=== PATIENT | female | born 1945 | race Caucasian/White ===

== ENCOUNTER 2023-06-18 21:39 | Inpatient (IN) | payer MEDICARE, MEDICAID ==
[2023-06-18] MEDS ORDERED: Piperacillin/Tazobactam 4.5 GM VIAL ONE (22:11)
[2023-06-18 22:22] LABS: Hematocrit 33.7 % (34.9-44.5); Hemoglobin 10.5 g/dL (12.0-15.5); MDiff Complete? YES; Mean Corpuscular HGB CONC 31.2 g/dL (32.0-36.0); Mean Corpuscular Volume 93.1 fl (81.6-98.3); Platelet Count 240 10x3/uL (150-450); RBC Distribution Width 14.5 % (11.5-14.5); Red Blood Cell (RBC) Count 3.62 10x6/uL (3.90-5.03); White Blood Cell (WBC) Count 26.3 10x3/uL (3.5-10.5)
[2023-06-18] MEDS ORDERED: Ketorolac Tromethamine 30 MG/ML VIAL ONE (22:25)
[2023-06-18 22:35] LABS: Bilirubin Neg (Negative); Blood, Urine 10 (Negative); Clarity Slightly Cloudy (Clear); Glucose, Urine (Dipstick) Normal (Negative); Ketone, Urine Negative (Negative); Leukocyte 500 (Negative); Nitrite Negative (Negative); Protein, Urine (Dipstick) 15 mg/dl (Neg-Trace); Urobilinogen Normal mg/dL (Less than 2)
[2023-06-18 22:36] LABS: ALT (SGPT) 7 U/L (8-55); AST (SGOT) 14 U/L (5-34); Albumin 3.2 g/dL (3.4-4.8); Alkaline Phosphatase 34 U/L (40-110); Anion Gap 15 mmol/L (10-20); BUN (Urea Nitrogen) 27 mg/dL (9.8-20.1); Bilirubin, Total 0.5 mg/dL (0.2-1.2); Calc. Creatinine Clearance 0 mL/min (70-130); Calcium 8.3 mg/dL (7.8-10.44); Carbon Dioxide 26 mmol/L (23-31); Chloride 102 mmol/L (98-107); Estimated GFR 30; Globulin 2.9 g/dL (2.4-3.5); Glucose 97 mg/dL (83-110); Protein, Total 6.1 g/dL (5.8-8.1); Sodium 139 mmol/L (136-145)
[2023-06-18 22:48] LABS: SARS-CoV-2 NAA Rapid Test Not Detected (NotDetected)
[2023-06-18 22:53] LABS: CAUTI Indications for Culture Fever or rigors; RBC/HPF 0-3 HPF (0-3)
[2023-06-18 22:54] LABS: Squamous Epithelial 0-3 HPF (0-3)
[2023-06-18 22:56] LABS: Renal Epithelial 0-3 HPF (None Seen)
[2023-06-18 22:57] LABS: Band 9 % (5-11); Eosinophils 1 % (0-10); Lymphocytes 13 % (21-51); Monocytes 1 % (0-10); Neutrophil 76 % (42-75)
[2023-06-18 22:58] LABS: Bacteria/HPF None Seen HPF (None Seen); Urine Culture Reflex No No
[2023-06-18] MEDS ORDERED: Vancomycin 1 GM VIAL ONE (22:59)
[2023-06-18 23:02] LABS: Hypochromia SLIGHT = 6-15 cells (100X) (0-5/hpf); Microcytosis SLIGHT = 6-15 cells (100X) (0-5/hpf); Platelet Adequacy Comment Appears Adequate; Platelet Clumps SLIGHT
[2023-06-19 01:13] VITALS: BMI 36.0
[2023-06-19] MEDS ORDERED: Communication Order-Pharmacy FS ONE (02:06)
[2023-06-19] MEDS ORDERED: Lactated Ringer's 1,000 ML IV SCH (02:15)
[2023-06-19] MEDS ORDERED: Vancomycin 1 GM in Sodium Chloride 0.9% 500 ML IVPB SCH (02:15)
[2023-06-19] MEDS ORDERED: Vancomycin 1 GM in Sodium Chloride 0.9% 250 ML 250 ML IVPB SCH (02:30)
[2023-06-19] MEDS: Acetaminophen 325 MG TAB PO PRN ×4 (02:50→20:43)
[2023-06-19] MEDS ORDERED: Sodium Chloride 0.65% Nasal 44 ML BOT EA NARE PRN (02:53)
[2023-06-19] MEDS ORDERED: Simethicone Chewable 80 MG TAB PO PRN (02:53)
[2023-06-19] MEDS ORDERED: Calcium Carbonate 500 MG ChewTAB PO PRN (02:53)
[2023-06-19] MEDS ORDERED: Polyethylene Glycol 3350 17 GM Packet PO PRN (02:53)
[2023-06-19] MEDS ORDERED: Fluticasone Propionate Nasal Spray 16 gm Bottle NASAL PRN (02:53)
[2023-06-19] MEDS ORDERED: guaiFENesin ER 600 MG TAB PO PRN (02:53)
[2023-06-19] MEDS ORDERED: Guaifenesin DM 100-10/5 ML UDCUP PO PRN (02:53)
[2023-06-19] MEDS ORDERED: Benzonatate 100 MG CAP PO PRN (02:53)
[2023-06-19] MEDS ORDERED: Docusate 100 MG CAP PO PRN (02:53)
[2023-06-19] MEDS: Sodium Chloride 0.9% 1,000 ML IV SCH ×2 (03:05→15:05)
[2023-06-19] MEDS: Cefepime 2 GM in Sodium Chloride 0.9% 100 ML IVPB SCH ×2 (03:20→14:41)
[2023-06-19] MEDS: Ipratropium/Albuterol 3 ML NEB NEB SCH ×5 (04:40→18:23)
[2023-06-19 04:57] LABS: #Basophils 0.1 10x3/uL (0.0-0.2); #Eosinphils 0.1 10x3/uL (0.0-0.5); #Monocytes 0.8 10x3/uL (0.0-1.1); #Neutrophils 17.4 10x3/uL (1.5-8.4); %Basophils 0.2 % (0.0-2.0); %Eosinophils 0.4 % (0.0-6.0); %Lymphocytes 11.5 % (18.0-47.0); %Monocytes 3.8 % (0.0-10.0); %Neutrophils 83.5 % (40.0-75.0); Hematocrit 31.4 % (34.9-44.5); Hemoglobin 9.8 g/dL (12.0-15.5); Mean Corpuscular HGB CONC 31.2 g/dL (32.0-36.0); Mean Corpuscular Hemoglobin 29.4 pg (27.0-33.0); Mean Corpuscular Volume 94.3 fl (81.6-98.3); Mean Platelet Volume 8.9 fl (7.4-10.4); Platelet Count 206 10x3/uL (150-450); RBC Distribution Width 14.6 % (11.5-14.5); Red Blood Cell (RBC) Count 3.33 10x6/uL (3.90-5.03); White Blood Cell (WBC) Count 20.9 10x3/uL (3.5-10.5)
[2023-06-19 05:09] LABS: Anion Gap 11 mmol/L (10-20); BUN (Urea Nitrogen) 25 mg/dL (9.8-20.1); Calc. Creatinine Clearance 48 mL/min (70-130); Carbon Dioxide 26 mmol/L (23-31); Chloride 105 mmol/L (98-107); Estimated GFR 37; Glucose 98 mg/dL (83-110); Magnesium 1.9 mg/dL (1.6-2.6); Potassium 3.9 mmol/L (3.5-5.1); Sodium 138 mmol/L (136-145)
[2023-06-19] MEDS: LevoFLOXacin 750 mg/D5W 750 MG in Premix 1 BAG IVPB SCH (05:40)
[2023-06-19] MEDS: Budesonide 0.5 MG/2 ML NEB INH SCH ×2 (07:35→18:24)
[2023-06-19] MEDS: hydrOXYzine 25 MG TAB PO SCH ×3 (08:28→20:42)
[2023-06-19] MEDS: Saccharomyces boulardii 250 MG CAP PO SCH ×2 (08:28→20:42)
[2023-06-19] MEDS: clonazePAM 0.5 MG TAB PO SCH ×2 (08:29→20:42)
[2023-06-19] MEDS: Sertraline 25 MG TAB PO SCH (08:29)
[2023-06-19] MEDS ORDERED: Iopamidol 370 76% 100 ML VIAL ONE (10:19)
[2023-06-19] MEDS: Betamethasone 0.1% Cream 15 GM TUBE TOP SCH ×4 (11:30→20:44)
[2023-06-19] MEDS: Artificial Tear Sol 15 ML BOT EA EYE SCH ×3 (11:31→20:44)
[2023-06-19] MEDS: Topiramate 25 MG TAB PO SCH ×2 (11:31→20:43)
[2023-06-19] MEDS ORDERED: Sodium Chloride 0.9% 1,000 ML IV SCH (14:32)
[2023-06-19] MEDS: Gabapentin 300 MG CAP PO SCH ×2 (14:40→20:41)
[2023-06-19] MEDS: rOPINIRole HCl 1 MG TAB PO SCH (20:41)
[2023-06-19] MEDS: Loratadine 10 MG TAB PO SCH (20:42)
[2023-06-19] MEDS: Mirtazapine 15 MG TAB PO SCH (20:42)
[2023-06-19] MEDS: Methocarbamol 500 MG TAB PO SCH (20:43)
[2023-06-19] MEDS: Vancomycin 1 GM in Sodium Chloride 0.9% 250 ML 250 ML IVPB SCH (23:39)
[2023-06-20 03:58] LABS: #Basophils 0.1 10x3/uL (0.0-0.2); #Eosinphils 0.2 10x3/uL (0.0-0.5); #Neutrophils 13.4 10x3/uL (1.5-8.4); %Basophils 0.3 % (0.0-2.0); %Eosinophils 1.1 % (0.0-6.0); %Lymphocytes 8.4 % (18.0-47.0); %Neutrophils 83.6 % (40.0-75.0); Hematocrit 32.1 % (34.9-44.5); Hemoglobin 9.7 g/dL (12.0-15.5); Mean Corpuscular HGB CONC 30.2 g/dL (32.0-36.0); Mean Corpuscular Hemoglobin 28.4 pg (27.0-33.0); Mean Corpuscular Volume 94.1 fl (81.6-98.3); Mean Platelet Volume 8.8 fl (7.4-10.4); Platelet Count 232 10x3/uL (150-450); RBC Distribution Width 14.6 % (11.5-14.5); Red Blood Cell (RBC) Count 3.41 10x6/uL (3.90-5.03)
[2023-06-20] MEDS: Cefepime 2 GM in Sodium Chloride 0.9% 100 ML IVPB SCH ×2 (03:58→14:08)
[2023-06-20 04:15] LABS: ALT (SGPT) Less than 7 U/L (8-55); AST (SGOT) 12 U/L (5-34); Albumin 2.7 g/dL (3.4-4.8); Alkaline Phosphatase 31 U/L (40-110); Anion Gap 9 mmol/L (10-20); BUN (Urea Nitrogen) 19 mg/dL (9.8-20.1); Bilirubin, Total 0.5 mg/dL (0.2-1.2); Calc. Creatinine Clearance 51 mL/min (70-130); Calcium 8.3 mg/dL (7.8-10.44); Carbon Dioxide 23 mmol/L (23-31); Chloride 109 mmol/L (98-107); Estimated GFR 41; Glucose 87 mg/dL (83-110); Potassium 4.4 mmol/L (3.5-5.1); Protein, Total 5.7 g/dL (5.8-8.1); Sodium 137 mmol/L (136-145)
[2023-06-20] MEDS: Ipratropium/Albuterol 3 ML NEB NEB SCH ×4 (07:40→20:10)
[2023-06-20] MEDS: Budesonide 0.5 MG/2 ML NEB INH SCH ×2 (07:40→20:10)
[2023-06-20] MEDS: Gabapentin 300 MG CAP PO SCH ×3 (08:13→21:20)
[2023-06-20] MEDS: Artificial Tear Sol 15 ML BOT EA EYE SCH ×3 (08:13→21:27)
[2023-06-20] MEDS: Betamethasone 0.1% Cream 15 GM TUBE TOP SCH ×4 (08:13→21:28)
[2023-06-20] MEDS: clonazePAM 0.5 MG TAB PO SCH ×2 (08:14→21:22)
[2023-06-20] MEDS: Sertraline 25 MG TAB PO SCH (08:14)
[2023-06-20] MEDS: hydrOXYzine 25 MG TAB PO SCH ×3 (08:14→21:23)
[2023-06-20] MEDS: Ondansetron PF 4 MG/2 ML Vial IVP PRN (08:14)
[2023-06-20] MEDS: Topiramate 25 MG TAB PO SCH ×2 (08:15→22:06)
[2023-06-20] MEDS: Saccharomyces boulardii 250 MG CAP PO SCH ×2 (08:15→21:29)
[2023-06-20] MEDS: Loratadine 10 MG TAB PO SCH (21:20)
[2023-06-20] MEDS: Mirtazapine 15 MG TAB PO SCH (21:22)
[2023-06-20] MEDS: Acetaminophen 325 MG TAB PO PRN (21:24)
[2023-06-20] MEDS: rOPINIRole HCl 1 MG TAB PO SCH (21:24)
[2023-06-20] MEDS: Methocarbamol 500 MG TAB PO SCH (22:07)
[2023-06-20 22:21] LABS: Vancomycin, Trough 16.6 ug/mL
[2023-06-20] MEDS: Vancomycin 1 GM in Sodium Chloride 0.9% 250 ML 250 ML IVPB SCH (23:35)
[2023-06-21] MEDS ORDERED: Vancomycin 1.5 GM in Sodium Chloride 0.9% 250 ML 300 ML IVPB SCH (02:15)
[2023-06-21] MEDS: Cefepime 2 GM in Sodium Chloride 0.9% 100 ML IVPB SCH ×2 (02:33→14:40)
[2023-06-21] MEDS: LevoFLOXacin 750 mg/D5W 750 MG in Premix 1 BAG IVPB SCH (04:38)
[2023-06-21] MEDS: Acetaminophen 325 MG TAB PO PRN ×3 (04:55→21:02)
[2023-06-21] MEDS ORDERED: dilTIAZem 25 MG/5 ML VIAL SLOW IVP SCH ×2 (05:30→06:15)
[2023-06-21] MEDS ORDERED: dilTIAZem 125 MG in Sodium Chloride 0.9% 100 ML IVPB SCH ×2 (06:15→08:30)
[2023-06-21] MEDS: Ondansetron PF 4 MG/2 ML Vial IVP PRN (06:33)
[2023-06-21 06:35] LABS: PTT 32.3 sec (22.0-33.0); Prothrombin Time 10.6 sec (9.5-12.1)
[2023-06-21] MEDS: Ipratropium/Albuterol 3 ML NEB NEB SCH ×4 (07:00→19:33)
[2023-06-21] MEDS: Budesonide 0.5 MG/2 ML NEB INH SCH ×2 (07:00→19:32)
[2023-06-21] MEDS ORDERED: Sodium Chloride 0.9% 500 ML IV SCH (07:00)
[2023-06-21 07:15] LABS: Troponin I 0.032 ng/mL (< 0.028)
[2023-06-21] MEDS: Metoprolol Tartrate 25 MG TAB PO SCH ×3 (08:48→21:02)
[2023-06-21 08:52] LABS: #Eosinphils 0.3 10x3/uL (0.0-0.5); #Monocytes 0.8 10x3/uL (0.0-1.1); #Neutrophils 9.4 10x3/uL (1.5-8.4); %Basophils 0.3 % (0.0-2.0); %Eosinophils 2.7 % (0.0-6.0); %Lymphocytes 10.8 % (18.0-47.0); %Monocytes 6.9 % (0.0-10.0); %Neutrophils 78.8 % (40.0-75.0); Hematocrit 34.4 % (34.9-44.5); Hemoglobin 10.3 g/dL (12.0-15.5); Mean Corpuscular HGB CONC 29.9 g/dL (32.0-36.0); Mean Corpuscular Hemoglobin 28.5 pg (27.0-33.0); Mean Platelet Volume 8.7 fl (7.4-10.4); Platelet Count 264 10x3/uL (150-450); RBC Distribution Width 14.5 % (11.5-14.5); Red Blood Cell (RBC) Count 3.62 10x6/uL (3.90-5.03); White Blood Cell (WBC) Count 11.9 10x3/uL (3.5-10.5)
[2023-06-21 08:54] LABS: ALT (SGPT) Less than 7 U/L (8-55); AST (SGOT) 12 U/L (5-34); Albumin 2.6 g/dL (3.4-4.8); Alkaline Phosphatase 31 U/L (40-110); Anion Gap 13 mmol/L (10-20); BUN (Urea Nitrogen) 15 mg/dL (9.8-20.1); Bilirubin, Total 0.5 mg/dL (0.2-1.2); Calc. Creatinine Clearance 58 mL/min (70-130); Calcium 8.1 mg/dL (7.8-10.44); Carbon Dioxide 22 mmol/L (23-31); Chloride 109 mmol/L (98-107); Estimated GFR 48; Globulin 2.7 g/dL (2.4-3.5); Glucose 82 mg/dL (83-110); Potassium 4.7 mmol/L (3.5-5.1); Protein, Total 5.3 g/dL (5.8-8.1); Sodium 139 mmol/L (136-145)
[2023-06-21 08:58] LABS: Troponin I 0.013 ng/mL (< 0.028)
[2023-06-21] MEDS ORDERED: Digoxin 0.5 MG/2 ML AMP SLOW IVP SCH (09:00)
[2023-06-21] MEDS: Gabapentin 300 MG CAP PO SCH ×3 (09:06→21:01)
[2023-06-21] MEDS: Saccharomyces boulardii 250 MG CAP PO SCH ×2 (09:06→21:01)
[2023-06-21] MEDS: Sertraline 25 MG TAB PO SCH (09:06)
[2023-06-21] MEDS: hydrOXYzine 25 MG TAB PO SCH ×3 (09:07→21:01)
[2023-06-21] MEDS: clonazePAM 0.5 MG TAB PO SCH ×2 (09:07→21:02)
[2023-06-21] MEDS: Artificial Tear Sol 15 ML BOT EA EYE SCH ×3 (09:12→21:04)
[2023-06-21] MEDS: Betamethasone 0.1% Cream 15 GM TUBE TOP SCH ×4 (09:13→21:04)
[2023-06-21] MEDS: Topiramate 25 MG TAB PO SCH ×2 (10:07→21:03)
[2023-06-21 12:07] LABS: Troponin I 0.013 ng/mL (< 0.028)
[2023-06-21] MEDS: Loratadine 10 MG TAB PO SCH (21:01)
[2023-06-21] MEDS: rOPINIRole HCl 1 MG TAB PO SCH (21:03)
[2023-06-21] MEDS: Methocarbamol 500 MG TAB PO SCH (21:03)
[2023-06-21] MEDS: Mirtazapine 15 MG TAB PO SCH (21:03)
[2023-06-21] MEDS: Vancomycin 1 GM in Sodium Chloride 0.9% 250 ML 250 ML IVPB SCH (23:48)
[2023-06-22] MEDS ORDERED: diphenhydrAMINE 25 MG CAP PO SCH (00:15)
[2023-06-22 03:30] LABS: #Basophils 0.1 10x3/uL (0.0-0.2); #Eosinphils 0.5 10x3/uL (0.0-0.5); #Monocytes 0.9 10x3/uL (0.0-1.1); #Neutrophils 5.8 10x3/uL (1.5-8.4); %Basophils 0.7 % (0.0-2.0); %Lymphocytes 19.8 % (18.0-47.0); %Monocytes 9.7 % (0.0-10.0); %Neutrophils 64.5 % (40.0-75.0); Hematocrit 33.1 % (34.9-44.5); Hemoglobin 10.1 g/dL (12.0-15.5); Mean Corpuscular HGB CONC 30.5 g/dL (32.0-36.0); Mean Corpuscular Hemoglobin 29.3 pg (27.0-33.0); Mean Corpuscular Volume 95.9 fl (81.6-98.3); Platelet Count 265 10x3/uL (150-450); RBC Distribution Width 14.5 % (11.5-14.5); Red Blood Cell (RBC) Count 3.45 10x6/uL (3.90-5.03)
[2023-06-22 03:39] LABS: Anion Gap 12 mmol/L (10-20); BUN (Urea Nitrogen) 14 mg/dL (9.8-20.1); Calc. Creatinine Clearance 65 mL/min (70-130); Calcium 8.6 mg/dL (7.8-10.44); Carbon Dioxide 22 mmol/L (23-31); Chloride 109 mmol/L (98-107); Estimated GFR 54; Glucose 73 mg/dL (83-110); Potassium 4.1 mmol/L (3.5-5.1); Sodium 139 mmol/L (136-145)
[2023-06-22] MEDS: Cefepime 2 GM in Sodium Chloride 0.9% 100 ML IVPB SCH ×2 (03:56→17:23)
[2023-06-22] MEDS: Budesonide 0.5 MG/2 ML NEB INH SCH ×2 (07:15→19:28)
[2023-06-22] MEDS: Ipratropium/Albuterol 3 ML NEB NEB SCH ×4 (07:20→19:29)
[2023-06-22] MEDS: Saccharomyces boulardii 250 MG CAP PO SCH ×2 (09:24→20:51)
[2023-06-22] MEDS: hydrOXYzine 25 MG TAB PO SCH ×3 (09:24→20:50)
[2023-06-22] MEDS: Gabapentin 300 MG CAP PO SCH ×3 (09:24→20:49)
[2023-06-22] MEDS: Topiramate 25 MG TAB PO SCH ×2 (09:25→20:51)
[2023-06-22] MEDS: Metoprolol Tartrate 25 MG TAB PO SCH ×3 (09:25→20:50)
[2023-06-22] MEDS: Sertraline 25 MG TAB PO SCH (09:25)
[2023-06-22] MEDS: Artificial Tear Sol 15 ML BOT EA EYE SCH ×3 (09:25→20:52)
[2023-06-22] MEDS: clonazePAM 0.5 MG TAB PO SCH ×2 (09:25→20:51)
[2023-06-22] MEDS: Betamethasone 0.1% Cream 15 GM TUBE TOP SCH ×4 (09:25→20:52)
[2023-06-22] MEDS ORDERED: Magnesium 2 GM/50 ML(in water) 2 GM in Premix 1 BAG IVPB SCH (14:45)
[2023-06-22] MEDS: Acetaminophen 325 MG TAB PO PRN (18:22)
[2023-06-22] MEDS: Mirtazapine 15 MG TAB PO SCH (20:50)
[2023-06-22] MEDS: rOPINIRole HCl 1 MG TAB PO SCH (20:51)
[2023-06-22] MEDS: Apixaban 2.5 MG TAB PO SCH (20:51)
[2023-06-22] MEDS: Loratadine 10 MG TAB PO SCH (20:51)
[2023-06-22] MEDS: Methocarbamol 500 MG TAB PO SCH (20:52)
[2023-06-22] MEDS: VANCOMYCIN 1.25 GM/250 ML BAG 1.25 GM in Premix 1 BAG IVPB SCH (22:24)
[2023-06-22 22:28] LABS: Vancomycin, Trough 19.2 ug/mL
[2023-06-23] MEDS: Cefepime 2 GM in Sodium Chloride 0.9% 100 ML IVPB SCH ×2 (04:20→14:29)
[2023-06-23] MEDS: LevoFLOXacin 750 mg/D5W 750 MG in Premix 1 BAG IVPB SCH (04:54)
[2023-06-23 05:03] LABS: Anion Gap 11 mmol/L (10-20); BUN (Urea Nitrogen) 13 mg/dL (9.8-20.1); Calc. Creatinine Clearance 73 mL/min (70-130); Calcium 8.2 mg/dL (7.8-10.44); Carbon Dioxide 24 mmol/L (23-31); Chloride 109 mmol/L (98-107); Estimated GFR 62; Glucose 78 mg/dL (83-110); Magnesium 2.3 mg/dL (1.6-2.6); Potassium 3.9 mmol/L (3.5-5.1); Sodium 140 mmol/L (136-145)
[2023-06-23] MEDS: Ipratropium/Albuterol 3 ML NEB NEB SCH ×4 (07:00→21:45)
[2023-06-23] MEDS: Gabapentin 300 MG CAP PO SCH ×3 (09:48→21:44)
[2023-06-23] MEDS: Acetaminophen 325 MG TAB PO PRN (09:48)
[2023-06-23] MEDS: Apixaban 2.5 MG TAB PO SCH ×2 (09:49→21:44)
[2023-06-23] MEDS: Sertraline 25 MG TAB PO SCH (09:49)
[2023-06-23] MEDS: Metoprolol Tartrate 25 MG TAB PO SCH ×3 (09:50→21:43)
[2023-06-23] MEDS: Topiramate 25 MG TAB PO SCH ×2 (09:50→21:44)
[2023-06-23] MEDS: clonazePAM 0.5 MG TAB PO SCH ×2 (09:50→21:44)
[2023-06-23] MEDS: hydrOXYzine 25 MG TAB PO SCH ×3 (09:50→21:43)
[2023-06-23] MEDS: Artificial Tear Sol 15 ML BOT EA EYE SCH ×3 (09:51→21:45)
[2023-06-23] MEDS: Betamethasone 0.1% Cream 15 GM TUBE TOP SCH ×4 (09:51→21:44)
[2023-06-23] MEDS: Saccharomyces boulardii 250 MG CAP PO SCH ×2 (09:51→21:43)
[2023-06-23] MEDS ORDERED: traMADol HCl 50 MG TAB PO PRN (09:56)
[2023-06-23] MEDS: Budesonide 0.5 MG/2 ML NEB INH SCH ×2 (10:00→21:45)
[2023-06-23] MEDS ORDERED: Potassium Chloride 20 MEQ TAB PO SCH (10:00)
[2023-06-23 10:54] LABS: Troponin I 0.015 ng/mL (< 0.028)
[2023-06-23 11:19] LABS: Anion Gap 12 mmol/L (10-20); BUN (Urea Nitrogen) 13 mg/dL (9.8-20.1); Calc. Creatinine Clearance 74 mL/min (70-130); Calcium 7.9 mg/dL (7.8-10.44); Carbon Dioxide 23 mmol/L (23-31); Chloride 109 mmol/L (98-107); Estimated GFR 64; Glucose 78 mg/dL (83-110); Potassium 3.8 mmol/L (3.5-5.1); Sodium 140 mmol/L (136-145)
[2023-06-23] MEDS: Methocarbamol 500 MG TAB PO SCH (21:43)
[2023-06-23] MEDS: Mirtazapine 15 MG TAB PO SCH (21:43)
[2023-06-23] MEDS: rOPINIRole HCl 1 MG TAB PO SCH (21:43)
[2023-06-23] MEDS: Loratadine 10 MG TAB PO SCH (21:43)
[2023-06-23] MEDS: VANCOMYCIN 1.25 GM/250 ML BAG 1.25 GM in Premix 1 BAG IVPB SCH (23:49)
[2023-06-24] MEDS: Cefepime 2 GM in Sodium Chloride 0.9% 100 ML IVPB SCH ×2 (03:43→15:04)
[2023-06-24] MEDS ORDERED: LevoFLOXacin 750 mg/D5W 750 MG in Premix 1 BAG IVPB SCH (05:00)
[2023-06-24] MEDS: Ipratropium/Albuterol 3 ML NEB NEB SCH ×3 (06:50→16:07)
[2023-06-24] MEDS: Budesonide 0.5 MG/2 ML NEB INH SCH (06:58)
[2023-06-24] MEDS: Saccharomyces boulardii 250 MG CAP PO SCH (09:40)
[2023-06-24] MEDS: Sertraline 25 MG TAB PO SCH (09:40)
[2023-06-24] MEDS: Topiramate 25 MG TAB PO SCH (09:40)
[2023-06-24] MEDS: Gabapentin 300 MG CAP PO SCH ×2 (09:41→14:28)
[2023-06-24] MEDS: clonazePAM 0.5 MG TAB PO SCH (09:42)
[2023-06-24] MEDS: Metoprolol Tartrate 25 MG TAB PO SCH ×2 (09:42→14:28)
[2023-06-24] MEDS: Apixaban 2.5 MG TAB PO SCH (09:42)
[2023-06-24] MEDS: hydrOXYzine 25 MG TAB PO SCH ×2 (09:42→14:28)
[2023-06-24] MEDS: Betamethasone 0.1% Cream 15 GM TUBE TOP SCH ×3 (09:43→14:30)
[2023-06-24] MEDS: Artificial Tear Sol 15 ML BOT EA EYE SCH ×2 (09:43→14:30)
[2023-06-24 10:34] LABS: Anion Gap 14 mmol/L (10-20); BUN (Urea Nitrogen) 11 mg/dL (9.8-20.1); Calc. Creatinine Clearance 70 mL/min (70-130); Calcium 8.5 mg/dL (7.8-10.44); Carbon Dioxide 23 mmol/L (23-31); Chloride 107 mmol/L (98-107); Estimated GFR 60; Glucose 80 mg/dL (83-110); Potassium 3.9 mmol/L (3.5-5.1); Sodium 140 mmol/L (136-145)
[2023-06-24 13:22] VITALS: BP 139/69; TEMP 98.5
== END 2023-06-24 16:35 | disposition home or self-care (01) | DRG 871 ==
LOC: CSHERS 21:39 → CSHTELE 23:11 → UNDOADMIN 23:11 → CSHTELE 06-19 00:08
PROVIDERS: ADMIT Family Medicine; ATTEND Hospitalist
DX: A41.9 Sepsis, unspecified organism (principal); J18.9 Pneumonia, unspecified organism; J96.21 Acute and chronic respiratory failure with hypoxia; J44.0 Chronic obstructive pulmonary disease with (acute) lower respiratory infection; G89.29 Other chronic pain; R65.20 Severe sepsis without septic shock; I95.9 Hypotension, unspecified; Z96.641 Presence of right artificial hip joint; F41.9 Anxiety disorder, unspecified; F32.A Depression, unspecified; G62.9 Polyneuropathy, unspecified; E66.9 Obesity, unspecified; M79.7 Fibromyalgia; G93.32 Myalgic encephalomyelitis/chronic fatigue syndrome; I48.0 Paroxysmal atrial fibrillation; G25.81 Restless legs syndrome; Z90.49 Acquired absence of other specified parts of digestive tract; Z90.710 Acquired absence of both cervix and uterus; Z98.890 Other specified postprocedural states; Z11.52 Encounter for screening for COVID-19; Z99.81 Dependence on supplemental oxygen; Z87.891 Personal history of nicotine dependence; Z88.1 Allergy status to other antibiotic agents; Z88.0 Allergy status to penicillin; Z88.2 Allergy status to sulfonamides; Z91.040 Latex allergy status; Z79.899 Other long term (current) drug therapy; Z68.36 Body mass index [BMI] 36.0-36.9, adult
CPT/HCPCS: 36415; 71045; 71260; 74177; 80048; 80053; 80202; 81001; 83605; 83735; 84443; 84484; 85025; 85610; 85730; 86140; 87040; 87086; 93005; 93010; 93306; 94640; 94667; 94668; 94760; 94762; J0692; J1160; J1650; J1885; J1956; J2405; J2543; J3370; J3475; J3490; J7030; J7050; J7120; J7620; J7626; Q9967

== ENCOUNTER 2023-09-06 14:41 | Inpatient (IN) | payer MEDICARE, MEDICAID ==
[2023-09-06 15:23] LABS: Bilirubin Neg (Negative); Blood, Urine Negative (Negative); Clarity Clear (Clear); Glucose, Urine (Dipstick) Normal (Negative); Ketone, Urine Negative (Negative); Leukocyte Negative (Negative); Nitrite Negative (Negative); Protein, Urine (Dipstick) Negative (Neg-Trace); Specific Gravity, Urine 1.005 (1.005-1.030); Urobilinogen Normal mg/dL (Less than 2)
[2023-09-06 15:30] LABS: CAUTI Indications for Culture Alt mental st,lethar; RBC/HPF 0-3 HPF (0-3); WBC/HPF None Seen HPF (0-3)
[2023-09-06 15:31] LABS: Bacteria/HPF None Seen HPF (None Seen); Squamous Epithelial 0-3 HPF (0-3)
[2023-09-06 15:32] LABS: Urine Culture Reflex No No
[2023-09-06] MEDS ORDERED: Acetaminophen 500 MG TAB ONE (15:32)
[2023-09-06] MEDS ORDERED: Cefepime 2 GM VIAL ONE (15:32)
[2023-09-06 15:57] LABS: Actual Bicarbonate (HCO3a) 29.5 mEq/L (22-28); Analyzer IN Cardio CS ER; Base Excess (BEa) 3.4 mEq/L (-2.0 to +3.0); CO2 Tension 51.2 mmHg (35.0-45.0); Calcium, Ionized (arterial) 1.14 mmol/L (1.12-1.30); Carboxyhemoglobin (COHb) 0.8 gm% (0.0-3.0); Hematocrit-ABG 37 % (36.0-47.0); Hemoglobin (Hb) 12.7 g/dL (12.0-16.0); O2 Tension (PaO2), arterial 50.2 mmHg (> 60.0); Potassium - ABG Lab 3.88 mmol/L (3.70-5.30); Puncture Site RRA; pH, Arterial 7.378 (7.35-7.45)
[2023-09-06 16:03] LABS: #Eosinphils 0.1 10x3/uL (0.0-0.5); #Monocytes 0.6 10x3/uL (0.0-1.1); #Neutrophils 16.7 10x3/uL (1.5-8.4); %Basophils 0.2 % (0.0-2.0); %Eosinophils 0.4 % (0.0-6.0); %Lymphocytes 4.8 % (18.0-47.0); %Monocytes 3.5 % (0.0-10.0); %Neutrophils 90.3 % (40.0-75.0); Hematocrit 40.6 % (34.9-44.5); Hemoglobin 12.3 g/dL (12.0-15.5); Mean Corpuscular HGB CONC 30.3 g/dL (32.0-36.0); Mean Corpuscular Hemoglobin 27.9 pg (27.0-33.0); Mean Corpuscular Volume 92.1 fl (81.6-98.3); Mean Platelet Volume 8.8 fl (7.4-10.4); Platelet Count 244 10x3/uL (150-450); RBC Distribution Width 14.6 % (11.5-14.5); Red Blood Cell (RBC) Count 4.41 10x6/uL (3.90-5.03); White Blood Cell (WBC) Count 18.5 10x3/uL (3.5-10.5)
[2023-09-06 16:20] LABS: ALT (SGPT) 7 U/L (8-55); AST (SGOT) 16 U/L (5-34); Albumin 3.6 g/dL (3.4-4.8); Alkaline Phosphatase 46 U/L (40-110); Anion Gap 13 mmol/L (10-20); BUN (Urea Nitrogen) 27 mg/dL (9.8-20.1); Bilirubin, Total 0.5 mg/dL (0.2-1.2); Calc. Creatinine Clearance 0 mL/min (70-130); Calcium 8.6 mg/dL (7.8-10.44); Carbon Dioxide 30 mmol/L (23-31); Chloride 104 mmol/L (98-107); Estimated GFR 28; Globulin 3.7 g/dL (2.4-3.5); Glucose 102 mg/dL (83-110); Potassium 4.2 mmol/L (3.5-5.1); Protein, Total 7.3 g/dL (5.8-8.1); Sodium 143 mmol/L (136-145)
[2023-09-06 16:23] LABS: SARS-CoV-2 NAA Rapid Test Not Detected (NotDetected)
[2023-09-06 16:26] LABS: Troponin I 0.054 ng/mL (< 0.028)
[2023-09-06 18:59] LABS: Troponin I 0.056 ng/mL (< 0.028)
[2023-09-06] MEDS ORDERED: Bisacodyl 5 MG TAB PO PRN (19:23)
[2023-09-06] MEDS ORDERED: HYDROcodone/Acetaminophen 5/325 mg Tablet PO PRN (19:23)
[2023-09-06] MEDS ORDERED: Communication Order-Pharmacy FS SCH (19:25)
[2023-09-06] MEDS ORDERED: Ipratropium/Albuterol 3 ML NEB NEB PRN (19:27)
[2023-09-06] MEDS ORDERED: hydrOXYzine 25 MG TAB PO SCH (21:00)
[2023-09-06 22:02] VITALS: BMI 32.9
[2023-09-06] MEDS ORDERED: Vancomycin Dose by Levels Sliding Scale (Wt 71-99) FS SCH (22:30)
[2023-09-06 22:34] LABS: Troponin I 0.053 ng/mL (< 0.028)
[2023-09-06] MEDS: metroNIDAZOLE 500 MG in Premix 1 BAG IVPB SCH (23:13)
[2023-09-06] MEDS: Benzonatate 100 MG CAP PO SCH (23:17)
[2023-09-06] MEDS: Acetylcysteine 800 MG/4 ML VIAL PO SCH (23:17)
[2023-09-06] MEDS: guaiFENesin ER 600 MG TAB PO SCH (23:17)
[2023-09-06] MEDS: Senokot S 8.6-50 MG TAB PO SCH (23:18)
[2023-09-06] MEDS: rOPINIRole HCl 1 MG TAB PO SCH (23:18)
[2023-09-06] MEDS: Loratadine 10 MG TAB PO SCH (23:19)
[2023-09-06] MEDS: Saccharomyces boulardii 250 MG CAP PO SCH (23:19)
[2023-09-06] MEDS: Mirtazapine 15 MG TAB PO SCH (23:19)
[2023-09-06] MEDS: Topiramate 25 MG TAB PO SCH (23:19)
[2023-09-06] MEDS: Methocarbamol 500 MG TAB PO SCH (23:19)
[2023-09-06] MEDS: Artificial Tear Sol 15 ML BOT EA EYE SCH (23:21)
[2023-09-06] MEDS: Apixaban 2.5 MG TAB PO SCH (23:38)
[2023-09-06] MEDS: Midodrine HCl 5 MG TAB PO SCH (23:38)
[2023-09-06] MEDS: VANCOMYCIN 2 GRAM/400 ML BAG 2 GM in Premix 1 BAG IVPB SCH (23:46)
[2023-09-06] MEDS: clonazePAM 0.5 MG TAB PO SCH (23:46)
[2023-09-06] MEDS: Albumin 25% 25 GM (100 mL) BOT IVPB SCH (23:46)
[2023-09-06] MEDS: Gabapentin 300 MG CAP PO SCH (23:46)
[2023-09-06] MEDS: Acetylcysteine 20% 200 MG/ML 30 ML VIAL PO SCH (23:49)
[2023-09-07 01:00] LABS: Legionella Urinary Ag Negative (Negative); Strep pneumo Urine Ag NEGATIVE (NEGATIVE)
[2023-09-07] MEDS: Cefepime 1 GM in Sodium Chloride 0.9% 100 ML IVPB SCH (02:36)
[2023-09-07] MEDS: Ipratropium/Albuterol 3 ML NEB NEB SCH (03:26)
[2023-09-07 04:23] LABS: #Basophils 0.1 10x3/uL (0.0-0.2); #Monocytes 0.9 10x3/uL (0.0-1.1); #Neutrophils 21.4 10x3/uL (1.5-8.4); %Basophils 0.2 % (0.0-2.0); %Lymphocytes 8.1 % (18.0-47.0); %Monocytes 3.6 % (0.0-10.0); %Neutrophils 86.6 % (40.0-75.0); Hematocrit 33.4 % (34.9-44.5); Hemoglobin 10.2 g/dL (12.0-15.5); Mean Corpuscular HGB CONC 30.5 g/dL (32.0-36.0); Mean Corpuscular Hemoglobin 28.3 pg (27.0-33.0); Mean Corpuscular Volume 92.8 fl (81.6-98.3); Mean Platelet Volume 8.6 fl (7.4-10.4); Platelet Count 185 10x3/uL (150-450); RBC Distribution Width 14.8 % (11.5-14.5); White Blood Cell (WBC) Count 24.8 10x3/uL (3.5-10.5)
[2023-09-07] MEDS: Calcium Carbonate 500 MG ChewTAB PO PRN (04:24)
[2023-09-07 04:37] LABS: Anion Gap 11 mmol/L (10-20); BUN (Urea Nitrogen) 33 mg/dL (9.8-20.1); Calc. Creatinine Clearance 37 mL/min (70-130); Calcium 8.4 mg/dL (7.8-10.44); Carbon Dioxide 26 mmol/L (23-31); Chloride 108 mmol/L (98-107); Estimated GFR 31; Glucose 107 mg/dL (83-110); Potassium 3.4 mmol/L (3.5-5.1); Sodium 142 mmol/L (136-145)
[2023-09-07] MEDS ORDERED: Furosemide 20 MG (2 mL) VIAL SLOW IVP SCH (06:00)
[2023-09-07] MEDS: Potassium Chloride 20 MEQ TAB PO SCH (06:47)
[2023-09-07] MEDS: Acetaminophen 325 MG TAB PO PRN (06:48)
[2023-09-07] MEDS: Mometasone/Formoterol 200/5 60 PUFF INH SCH (08:30)
[2023-09-07] MEDS ORDERED: Vancomycin 1 GM in Premix 1 BAG IVPB SCH (09:00)
[2023-09-07] MEDS ORDERED: Enoxaparin 30 MG (0.3 mL) SYRINGE SC SCH (09:00)
[2023-09-07] MEDS: Acetylcysteine 800 MG/4 ML VIAL PO SCH (09:38)
[2023-09-07] MEDS: Sertraline 100 MG TAB PO SCH (09:39)
[2023-09-07] MEDS: Polyethylene Glycol 3350 17 GM Packet PO PRN (09:40)
[2023-09-07] MEDS: Azithromycin 500 MG in Sodium Chloride 0.9% 250 ML 250 ML IVPB SCH (09:48)
[2023-09-07 16:51] LABS: Vancomycin, Random 28.1 ug/mL (See Comment)
[2023-09-07] MEDS: Guaifenesin DM 100-10/5 ML UDCUP PO PRN (18:20)
[2023-09-07] MEDS: Ondansetron PF 4 MG/2 ML Vial IVP PRN (21:04)
[2023-09-08 05:50] LABS: #Basophils 0.1 10x3/uL (0.0-0.2); #Eosinphils 0.1 10x3/uL (0.0-0.5); #Monocytes 0.8 10x3/uL (0.0-1.1); #Neutrophils 14.2 10x3/uL (1.5-8.4); %Basophils 0.3 % (0.0-2.0); %Eosinophils 0.4 % (0.0-6.0); %Lymphocytes 9.4 % (18.0-47.0); %Monocytes 4.5 % (0.0-10.0); %Neutrophils 84.4 % (40.0-75.0); Hematocrit 33.7 % (34.9-44.5); Hemoglobin 10.5 g/dL (12.0-15.5); Mean Corpuscular HGB CONC 31.2 g/dL (32.0-36.0); Mean Corpuscular Hemoglobin 29.2 pg (27.0-33.0); Mean Corpuscular Volume 93.6 fl (81.6-98.3); Mean Platelet Volume 9.5 fl (7.4-10.4); Platelet Count 180 10x3/uL (150-450); RBC Distribution Width 14.9 % (11.5-14.5); White Blood Cell (WBC) Count 16.9 10x3/uL (3.5-10.5)
[2023-09-08 06:00] LABS: Anion Gap 11 mmol/L (10-20); BUN (Urea Nitrogen) 27 mg/dL (9.8-20.1); Calc. Creatinine Clearance 48 mL/min (70-130); Calcium 8.8 mg/dL (7.8-10.44); Carbon Dioxide 24 mmol/L (23-31); Chloride 110 mmol/L (98-107); Estimated GFR 42; Glucose 85 mg/dL (83-110); Potassium 3.8 mmol/L (3.5-5.1); Sodium 141 mmol/L (136-145)
[2023-09-08 06:10] LABS: Vancomycin, Random 24.1 ug/mL (See Comment)
[2023-09-08] MEDS: Furosemide 40 MG (4 mL) VIAL SLOW IVP SCH (16:25)
[2023-09-08] MEDS: Azithromycin 500 MG in Sodium Chloride 0.9% 250 ML 250 ML IVPB SCH (19:27)
[2023-09-09 05:04] LABS: #Eosinphils 0.3 10x3/uL (0.0-0.5); #Monocytes 0.7 10x3/uL (0.0-1.1); #Neutrophils 7.3 10x3/uL (1.5-8.4); %Basophils 0.3 % (0.0-2.0); %Eosinophils 2.8 % (0.0-6.0); %Lymphocytes 16.5 % (18.0-47.0); %Monocytes 6.7 % (0.0-10.0); %Neutrophils 73.1 % (40.0-75.0); Hematocrit 32.8 % (34.9-44.5); Hemoglobin 10.6 g/dL (12.0-15.5); Mean Corpuscular HGB CONC 32.3 g/dL (32.0-36.0); Mean Corpuscular Hemoglobin 29.5 pg (27.0-33.0); Mean Corpuscular Volume 91.4 fl (81.6-98.3); Mean Platelet Volume 9.5 fl (7.4-10.4); Platelet Count 200 10x3/uL (150-450); RBC Distribution Width 14.8 % (11.5-14.5); Red Blood Cell (RBC) Count 3.59 10x6/uL (3.90-5.03)
[2023-09-09 05:09] LABS: Vancomycin, Random 19.6 ug/mL (See Comment)
[2023-09-09 05:10] LABS: Anion Gap 11 mmol/L (10-20); BUN (Urea Nitrogen) 19 mg/dL (9.8-20.1); Calc. Creatinine Clearance 61 mL/min (70-130); Calcium 8.5 mg/dL (7.8-10.44); Carbon Dioxide 25 mmol/L (23-31); Chloride 108 mmol/L (98-107); Estimated GFR 56; Glucose 90 mg/dL (83-110); Sodium 141 mmol/L (136-145)
[2023-09-09] MEDS ORDERED: Torsemide 20 MG TAB PO SCH (09:00)
[2023-09-09] MEDS: Furosemide 40 MG (4 mL) VIAL SLOW IVP SCH (09:47)
[2023-09-09] MEDS: Potassium Bicarbonate/Cit Ac 20 MEQ TAB PO SCH (09:48)
[2023-09-09 13:28] VITALS: BP 112/73; TEMP 98
[2023-09-10] MEDS ORDERED: Torsemide 20 MG TAB PO SCH (09:00)
== END 2023-09-09 14:48 | DRG 871 ==
LOC: CSHERS 14:41 → CSHERHOLD 18:03 → CSHTELE 20:58
PROVIDERS: ADMIT Student in an Organized Health Care Education/Training Program; ATTEND Hospitalist
PROC: 4A033R1 Measurement of Arterial Saturation, Peripheral, Percutaneous Approach (ICD-10-PCS; principal; 2023-09-06)
PROC: 3E03329 Introduction of Other Anti-infective into Peripheral Vein, Percutaneous Approach (ICD-10-PCS; 2023-09-06)
DX: A41.9 Sepsis, unspecified organism (principal); J69.0 Pneumonitis due to inhalation of food and vomit; J96.21 Acute and chronic respiratory failure with hypoxia; N17.9 Acute kidney failure, unspecified; I50.22 Chronic systolic (congestive) heart failure; I5A Non-ischemic myocardial injury (non-traumatic); R13.10 Dysphagia, unspecified; Y95 Nosocomial condition; R79.89 Other specified abnormal findings of blood chemistry; I48.0 Paroxysmal atrial fibrillation; J44.9 Chronic obstructive pulmonary disease, unspecified; G25.81 Restless legs syndrome; F41.9 Anxiety disorder, unspecified; F32.A Depression, unspecified; Z96.641 Presence of right artificial hip joint; K44.9 Diaphragmatic hernia without obstruction or gangrene; Z88.1 Allergy status to other antibiotic agents; Z91.040 Latex allergy status; Z88.0 Allergy status to penicillin; Z88.2 Allergy status to sulfonamides; Z88.8 Allergy status to other drugs, medicaments and biological substances; Z79.899 Other long term (current) drug therapy; Z11.52 Encounter for screening for COVID-19; Z90.49 Acquired absence of other specified parts of digestive tract; Z90.710 Acquired absence of both cervix and uterus; Z98.890 Other specified postprocedural states; Z87.891 Personal history of nicotine dependence
CPT/HCPCS: 0241U; 36415; 36600; 71045; 71250; 74230; 80048; 80053; 80202; 81001; 82805; 83605; 83880; 84484; 85025; 87040; 87449; 87899; 93005; 94640; 94664; 94760; 94762; J0456; J0692; J1940; J2405; J3370; J3490; J7050; J7620